=== PATIENT | female | born 1950 | race African-American/Black ===

== ENCOUNTER 2019-12-03 14:13 | Emergency (ER) | payer OTHER ==
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
[2019-12-03 15:25] VITALS: BP 177/69; TEMP 97.7; O2SAT 100
== END 2019-12-03 14:59 | disposition home or self-care (01) ==
LOC: ER 14:13
DX: T22.111A Burn of first degree of right forearm, initial encounter (principal); T23.101A Burn of first degree of right hand, unspecified site, initial encounter; T25.121A Burn of first degree of right foot, initial encounter; T24.101A Burn of first degree of unspecified site of right lower limb, except ankle and foot, initial encounter; T31.0 Burns involving less than 10% of body surface; X10.0XXA Contact with hot drinks, initial encounter; Y93.9 Activity, unspecified; Y92.59 Other trade areas as the place of occurrence of the external cause; Z79.01 Long term (current) use of anticoagulants; Z79.82 Long term (current) use of aspirin; I10 Essential (primary) hypertension; I25.2 Old myocardial infarction
CPT/HCPCS: 99281